=== PATIENT | female | born 1985 | race Caucasian/White ===

== ENCOUNTER 2020-01-12 23:44 | Emergency (ER) | payer BC ==
[2020-01-13] MEDS ORDERED: Ondansetron 4 MG/2 ML SDV IVPUSH ONE (00:20)
[2020-01-13] MEDS ORDERED: HYDROmorphone 1 MG/ML Syringe IVPUSH STA (00:20)
--- NOTE | 2020-01-13 00:25 | EDM.PDOC ---
ED HPI GENERAL MEDICAL PROBLEM - General Chief Complaint: Abdominal Pain Stated Complaint: LEFT SIDE STOMACH PAIN Time Seen by Provider: 01/13/20 00:05 Source of Information: Reports: Patient History Limitations: Reports: No Limitations - History of Present Illness INITIAL COMMENTS - FREE TEXT/NARRATIVE: Mrs. Wray is a very pleasant 34-year-old woman who now presents the ED with sharp left lower quadrant abdominal pain that began around 21:00 last night. She states that it started off relatively mild, but that it has progressively been getting worse ever since. The pain radiates to her lower left back. She has since developed nausea and vomiting, although she has not had any constipation, diarrhea, urinary symptoms, or fever. No prior similar symptoms. The patient did not take any [id number] or home remedies prior to coming to the ED. Her LMP was 12/23/2019, and was normal for her. The patient last ate around 15:30 yesterday afternoon. Here in the ED, the patient's initial BP is found to be mildly elevated at 142/82, with a slight bradycardia of 59 bpm. She is afebrile, saturating 100% on room air. Prior to last night, the patient denies having a recent fever, chills, sore throat, ear pain, nasal or sinus congestion, cough, dyspnea, chest pain, palpitations, nausea, vomiting, constipation, diarrhea, abdominal pain, urinary symptoms, recent weight gain or weight loss, recent bloody bowel movements or black bowel movements, recent joint aches, headaches, or rashes. The patient's PCP is PAUL Wood. Her Machine Pie Maker is Dr. Radha Banegas. Left Lower Abdomen Pain Score (Numeric/FACES): 10 - Related Data Allergies Allergy/AdvReac Type Severity Reaction Status Date / Time Penicillins Allergy Hives Verified 01/12/20 23:58 Past Medical History [employer] History: Reports: Spontaneous (x 1) : 5 Para: 4 Psychiatric History: Reports: ADHD Dermatologic History: Reports: Other (See Below) (Hyperkeratosis) - Past Surgical History HEENT Surgical History: Reports: Adenoidectomy, Tonsillectomy Female Surgical History: Reports: D&C (x 1), Tubal Ligation Social & Family History - Family History Family Medical History: Noncontributory - Tobacco Use Tobacco Use Status *Q: Current Every Day Tobacco User Tobacco Use Within Last Twelve Months: Vaping (Nicotine) Years of Tobacco use: 15 Packs/Tins Daily: 1 Packs/Tins Daily Comment: Down from 1.5 ppd - Alcohol Use Alcohol Use History: Yes Alcohol Use Frequency: Rarely - Recreational Drug Use Recreational Drug Use: No - Living Situation & Occupation Living situation: Reports: , with Spouse, with Family (4 kids) Occupation: Employed (Cleaning service) ED ROS GENERAL - Review of Systems Review Of Systems: Comprehensive ROS is negative, except as noted in HPI. ED EXAM, GI/ABD - Physical Exam Exam: See Below Exam Limited By: No Limitations General Appearance: Alert, WD/WN, Mild Distress (appears uncomfortable) Eyes: Bilateral: Normal Appearance, EOMI Ears: Normal External Exam, Hearing Grossly Normal Nose: Normal Inspection Throat/Mouth: Normal Inspection, Normal Lips, Normal Voice, No Airway Compromise Head: Atraumatic, Normocephalic Neck: Normal Inspection, Full Range of Motion Respiratory/Chest: No Respiratory Distress, Lungs Clear, Normal Breath Sounds, No Accessory Muscle Use Cardiovascular: Normal Peripheral Pulses, Regular Rate, Rhythm, No Edema, No Gallop, No JVD, No Murmur, No Rub GI/Abdominal Exam: Soft, No Organomegaly, No Distention, No Abnormal Bruit, No Mass, Tender (Exquisite, to the left lower quadrant/pelvis. Essentially nontender elsewhere.), Abnormal Bowel Sounds (diminished) Back Exam: Normal Inspection, Full Range of Motion, CVA Tenderness (L) (mild, inferior). No: CVA Tenderness (R) Extremities: Normal Inspection, Normal Range of Motion, No Pedal Edema, Normal Capillary Refill Neurological: Alert, Oriented, Normal Cognition, No Motor/Sensory Deficits Psychiatric: Normal Affect Skin Exam: Warm, Dry, Intact, Normal Color, No Rash Course - Vital Signs Last Recorded V/S: Last Vital Signs Temp 36.2 C 01/12/20 23:54 Pulse 59 L 01/12/20 23:54 Resp 18 01/12/20 23:54 BP 142/82 H 01/12/20 23:54 Pulse Ox 100 01/12/20 23:54 - Orders/Labs/Meds Orders: Active Orders 24 hr Category Date Time Status Abdomen Pelvis w Cont [CT] Stat Exams 01/13/20 00:20 Taken Sodium Chloride 0.9% [Normal Saline] 1,000 ml Med 01/13/20 00:30 Active IV ASDIRECTED Medication Orders Sodium Chloride (Normal Saline) 1,000 mls @ 150 mls/hr IV ASDIRECTED TOMMY Last Admin: 01/13/20 00:29 Dose: 150 mls/hr Documented by: ROBERT Labs: Laboratory Tests 01/13/20 01/13/20 01/13/20 Range/Units 00:06 00:06 00:55 WBC 12.51 H (3.98-10.04) K/mm3 RBC 4.89 (3.98-5.22) M/mm3 Hgb 13.7 (11.2-15.7) gm/dl Hct 40.1 (34.1-44.9) % MCV 82.0 (79.4-94.8) fl MCH 28.0 (25.6-32.2) pg MCHC 34.2 (32.2-35.5) g/dl RDW Std Deviation 43.0 (36.4-46.3) fL Plt Count 288 (182-369) K/mm3 MPV 11.0 (9.4-12.3) fl Neutrophils % (Manual) 33 L (40-60) % Band Neutrophils % 1 (0-10) % Lymphocytes % (Manual) 37 (20-40) % Atypical Lymphs % 16 % Monocytes % (Manual) 13 H (2-10) % Eosinophils % (Manual) 0 L (0.7-5.8) % Basophils % (Manual) 0 L (0.1-1.2) Platelet Estimate Adequate Plt Morphology Comment Normal RBC Morph Comment Normal Sodium 134 L (136-145) mEq/L Potassium 3.5 (3.5-5.1) mEq/L Chloride 99 (98-107) mEq/L Carbon Dioxide 18 L (21-32) mEq/L Anion Gap 20.5 H (5-15) BUN 17 (7-18) mg/dL Creatinine 1.0 (0.55-1.02) mg/dL Est Cr Clr Drug Dosing 87.34 mL/min Estimated GFR (MDRD) > 60 (>60) mL/min BUN/Creatinine Ratio 17.0 (14-18) Glucose 123 H (74-106) mg/dL Calcium 9.1 (8.5-10.1) mg/dL Magnesium 1.6 L (1.8-2.4) mg/dl Total Bilirubin 0.3 (0.2-1.0) mg/dL AST 20 (15-37) U/L ALT 22 (14-59) U/L Alkaline Phosphatase 48 (46-116) U/L Total Protein 7.8 (6.4-8.2) g/dl Albumin 3.9 (3.4-5.0) g/dl Globulin 3.9 gm/dL Albumin/Globulin Ratio 1.0 (1-2) Urine Color Yellow (Yellow) Urine Appearance Clear (Clear) Urine pH 5.5 (5.0-8.0) Ur Specific [place] > or = 1.030 (1.005-1.030) Urine Protein Trace H (Negative) Urine Glucose (UA) Negative (Negative) Urine Ketones 3+ H (Negative) Urine Occult Blood Negative (Negative) Urine Nitrite Negative (Negative) Urine Bilirubin Negative (Negative) Urine Urobilinogen 0.2 (0.2-1.0) Ur Leukocyte Esterase Negative (Negative) Urine RBC 0-5 (0-5) /hpf Urine WBC 0-5 (0-5) /hpf Ur Squamous Epith Cells 0-5 (0-5) /hpf Urine Bacteria Few (FEW) /hpf Urine Mucus Moderate H (FEW) /hpf Urine HCG, Qual (NEGATIVE) 01/13/20 Range/Units 01:04 WBC (3.98-10.04) K/mm3 RBC (3.98-5.22) M/mm3 Hgb (11.2-15.7) gm/dl Hct (34.1-44.9) % MCV (79.4-94.8) fl MCH (25.6-32.2) pg MCHC (32.2-35.5) g/dl RDW Std Deviation (36.4-46.3) fL Plt Count (182-369) K/mm3 MPV (9.4-12.3) fl Neutrophils % (Manual) (40-60) % Band Neutrophils % (0-10) % Lymphocytes % (Manual) (20-40) % Atypical Lymphs % % Monocytes % (Manual) (2-10) % Eosinophils % (Manual) (0.7-5.8) % Basophils % (Manual) (0.1-1.2) Platelet Estimate Plt Morphology Comment RBC Morph Comment Sodium (136-145) mEq/L Potassium (3.5-5.1) mEq/L Chloride (98-107) mEq/L Carbon Dioxide (21-32) mEq/L Anion Gap (5-15) BUN (7-18) mg/dL Creatinine (0.55-1.02) mg/dL Est Cr Clr Drug Dosing mL/min Estimated GFR (MDRD) (>60) mL/min BUN/Creatinine Ratio (14-18) Glucose (74-106) mg/dL Calcium (8.5-10.1) mg/dL Magnesium (1.8-2.4) mg/dl Total Bilirubin (0.2-1.0) mg/dL AST (15-37) U/L ALT (14-59) U/L Alkaline Phosphatase (46-116) U/L Total Protein (6.4-8.2) g/dl Albumin (3.4-5.0) g/dl Globulin gm/dL Albumin/Globulin Ratio (1-2) Urine Color (Yellow) Urine Appearance (Clear) Urine pH (5.0-8.0) Ur Specific [place] (1.005-1.030) Urine Protein (Negative) Urine Glucose (UA) (Negative) Urine Ketones (Negative) Urine Occult Blood (Negative) Urine Nitrite (Negative) Urine Bilirubin (Negative) Urine Urobilinogen (0.2-1.0) Ur Leukocyte Esterase (Negative) Urine RBC (0-5) /hpf Urine WBC (0-5) /hpf Ur Squamous Epith Cells (0-5) /hpf Urine Bacteria (FEW) /hpf Urine Mucus (FEW) /hpf Urine HCG, Qual Negative (NEGATIVE) Meds: Medications Generic Name Dose Route Start Last Admin Trade Name Freq PRN Reason Stop Dose Admin Sodium Chloride 1,000 mls @ 150 mls/hr 01/13/20 00:30 01/13/20 00:29 Normal Saline IV 150 mls/hr ASDIRECTED TOMMY Administration Discontinued Medications Generic Name Dose Route Start Last Admin Trade Name Freq PRN Reason Stop Dose Admin Diatrizoate Meglum/Diatrizoate Sod 120 ml 01/13/20 01:47 01/13/20 01:48 Gastrografin 37% PO 01/13/20 01:48 120 ml ONETIME ONE Administration Hydromorphone HCl 1 mg 01/13/20 00:20 01/13/20 00:31 Dilaudid IVPUSH 01/13/20 00:21 1 mg ONETIME STA Administration Hydromorphone HCl 1 mg 01/13/20 01:49 01/13/20 01:57 Dilaudid IVPUSH 01/13/20 01:50 1 mg ONETIME ONE Administration Iopamidol 100 ml 01/13/20 01:47 01/13/20 01:48 Isovue-300 (61%) IVPUSH 01/13/20 01:48 100 ml ONETIME ONE Administration Magnesium Sulfate 2 gm 01/13/20 00:52 01/13/20 01:07 Magnesium Sulfate In Water Premix IV 01/13/20 00:53 2 gm ONETIME STA Administration Ondansetron HCl 4 mg 01/13/20 00:20 01/13/20 00:30 Zofran IVPUSH 01/13/20 00:21 4 mg ONETIME ONE Administration Sodium Chloride 10 ml 01/13/20 01:47 01/13/20 01:48 Saline Flush FLUSH 01/13/20 01:48 10 ml ONETIME ONE Administration - Re-Assessments/Exams Free Text/Narrative Re-Assessment/Exam: 01/13/20 00:22 As above, the patient developed sharp left lower quadrant pain radiating to her lower left back around 21:00 last night, which has progressively gotten worse. She has had nausea and vomiting, but no other symptoms. She is afebrile. On examination, she has considerable left lower quadrant/pelvic tenderness, and minimal left lower flank tenderness. Her history is concerning for a ureterolith, but her examination is far more consistent with a ruptured ovarian cyst. I have ordered a work-up that includes blood work, a urinalysis, a urine test, and a CT of the abdomen and pelvis with oral and IV contrast. In the meantime, the patient will be given IV Dilaudid, IV Zofran, and IV fluid. 01/13/20 00:52 The patient's CMP is remarkable for a sodium slightly depressed at 134, and anion gap mildly elevated at 20.5, with a bicarbonate decreased at 18, and a blood glucose mildly elevated 123, with the remainder of her CMP being unremarkable. Her magnesium level is mildly depressed at 1.6. Based on the above, I have ordered a 2 g Mg-rider. 01/13/20 01:21 The patient's CBC is remarkable for WBC count elevated at 12.51, but with 1% bandemia, and the remainder of her CBC being unremarkable. Her urinalysis is unremarkable. Her urine test is negative. 01/13/20 02:05 CT of the abdomen and pelvis with oral and IV contrast is read by [facility] as: 1. Complex cystic LEFT adnexal mass as above.Differential diagnostic considerations would include functional/hemorrhagic/complex ovarian cyst, endometrioma, cystic ovarian neoplasm, or less likely tubo-ovarian abscess. 2. Remainder of findings described as above. 01/13/20 02:09 Test results discussed with the patient. As above, the patient's pain appears to be due to a left ovarian cyst. I am recommending ibuprofen as needed for discomfort, however, she will also be provided with [facility]'s prescriptions for both [place] and Zofran. I would like her to follow-up with her Machine Pie Maker to make sure that there is nothing else going on. The patient's Mg-rider has not yet finished infusing; once it is finished, we will discharge the patient home. Departure - Departure Time of Disposition: 02:11 Disposition: Home, Self-Care 01 Condition: Good Clinical Impression: Left ovarian cyst, Hypomagnesemia - Discharge Information *PRESCRIPTION DRUG MONITORING PROGRAM REVIEWED*: Not Applicable *COPY OF PRESCRIPTION DRUG MONITORING REPORT IN PATIENT CHRISTOPHER: Not Applicable Referrals: Katelyn Prescott PA-C [Primary Care Provider] - Radha Banegas MD [Physician] - Forms: ED Department Discharge Additional Instructions: You were seen in the emergency room after developing progressively worsening lower left abdominal pain last night, with nausea and vomiting. Work-up in ER included blood work, a urinalysis, a urine test, and a CT of your abdomen and pelvis with oral and IV contrast. Your blood work found your magnesium level to be mildly depressed at 1.6. You were given IV replacement magnesium in the ER. The CT scan found a complex left ovarian cyst, which is most likely the cause of your pain. We recommend that you take [id number] ibuprofen, 3 tablets (600 mg) up to every 8 hours, with food, as needed for discomfort. You have been provided with prescriptions for both the opioid pain reliever [place] and the anti-nausea medicine Zofran via [facility]. You may take 1 to 2 tablets of [place] up to every 6 hours, as needed for pain not relieved by ibuprofen. If you take [place], do not drive or operate heavy machinery for 12 hours afterwards. [place] may cause constipation, so consider taking a stool softener. You may dissolve 1 tablet of Zofran on your tongue up to every 8 hours, as needed for nausea/vomiting. We recommend that you follow-up with your Machine Pie Maker, Dr. Radha Banegas, at the next available appointment, for further evaluation of the ovarian mass. If any other problems, please do not hesitate to return to the ER. Sepsis Event Note (ED) - Evaluation Sepsis Screening Result: No Definite Risk - Focused Exam Vital Signs: Vital Signs Temp Pulse Resp BP Pulse Ox 01/12/20 23:54 36.2 C 59 L 18 142/82 H 100 - My Orders Last 24 Hours: My Active Orders 01/13/20 00:20 Abdomen Pelvis w Cont [CT] Stat 01/13/20 00:30 Sodium Chloride 0.9% [Normal Saline] 1,000 ml IV ASDIRECTED - Assessment/Plan Last 24 Hours: My Active Orders 01/13/20 00:20 Abdomen Pelvis w Cont [CT] Stat 01/13/20 00:30 Sodium Chloride 0.9% [Normal Saline] 1,000 ml IV ASDIRECTED
[2020-01-13] MEDS ORDERED: Sodium Chloride 0.9% 1,000 ML IV SCH (00:30)
[2020-01-13] MEDS ORDERED: Magnesium Sulfate/Water 2 GM/50 ML Premix Bag IV STA (00:52)
[2020-01-13] MEDS ORDERED: Iopamidol 612 MG/ML 100 ML Bottle IVPUSH ONE (01:47)
[2020-01-13] MEDS ORDERED: Sodium Chloride 0.9% 10 ML Syringe FLUSH ONE (01:47)
[2020-01-13] MEDS ORDERED: Diatrizoate Meglumine/Diatrizoate Sodium 37% 120 ML Bottle PO ONE (01:47)
[2020-01-13] MEDS ORDERED: HYDROmorphone 1 MG/ML Syringe IVPUSH ONE (01:49)
--- NOTE | 2020-01-17 13:04 | CT ---
"PROCEDURE INFORMATION: Exam: CT Abdomen And Pelvis With Contrast Exam date and time: 01/13/2020 12:43 AM Age: 34 years old Clinical indication: Abdominal pain; Flank; Left lower quadrant (llq); Prior surgery; Surgery date: 6+ months; Surgery type: Tubal ligation TECHNIQUE: Imaging protocol: Computed tomography of the abdomen and pelvis with intravenous contrast. Contrast material: ISOVUE 300; Contrast volume: 125 ml; Contrast route: INTRAVENOUS (IV); COMPARISON: US OB Follow Up 1st 10/19/2018 4:34 PM FINDINGS: Lungs: Bilateral dependent lower lobe atelectasis, left greater than right. Early mild left basilar pneumonitis cannot entirely be excluded Liver: Liver is normal. Gallbladder and bile ducts: Gallbladder is normal. No biliary ductal dilation. Pancreas: Pancreas is normal. Spleen: Spleen is normal. Adrenals: No adrenal mass. Kidneys and ureters: Right kidney is normal. Left kidney is normal. Symmetric bilateral renal contrast excretion noted, into normal nondilated renal collecting systems and ureters, on delayed imaging.No hydronephrosis. No ureteral calculus. Stomach and bowel: No bowel obstruction. No pathologic bowel wall thickening. Oral contrast only within stomach and proximal small bowel. No bowel wall pneumatosis. Appendix: No evidence of acute appendicitis. Unremarkable appendix. Intraperitoneal space: No pneumoperitoneum. Mild pelvic free intraperitoneal fluid. Vasculature: No aortic aneurysm. Pelvic phleboliths. Lymph nodes: No pathologically enlarged lymph nodes. Urinary bladder: Unremarkable urinary bladder. ROSMERY KAT | Final Radiology Report CONFIDENTIALITY STATEMENT This report is intended only for use by the referring physician, and only in accordance with law. If you received this in error, call [phone]. Page 2 of 2 Reproductive: Possible fibroid uterus with prominent uterine endometrium and/or mild nonspecific fluid. No right adnexal mass. 4.6 x 2.5 cm complex, ovoid hypodense and isodense left adnexal mass, which contains dominant 2.2 cm hypodense complex cystic region. Bones/joints: No acute displaced fracture or osseous neoplastic lesion. Soft tissues: Unremarkable. IMPRESSION: 1. Complex cystic LEFT adnexal mass as above.Differential diagnostic considerations would include functional/hemorrhagic/complex ovarian cyst, endometrioma, cystic ovarian neoplasm, or less likely tubo-ovarian abscess. 2. Remainder of findings described as above. Thank you for allowing us to participate in the care of your patient. Dictated and Authenticated by: Jian Zamora MD 01/13/2020 2:59 AM Central Time ([place] & [place]) [place]"
== END 2020-01-13 03:00 | disposition home or self-care (01) ==
LOC: JD.ED 23:44
DX: N83.202 Unspecified ovarian cyst, left side (principal); E83.42 Hypomagnesemia; F17.210 Nicotine dependence, cigarettes, uncomplicated; F17.290 Nicotine dependence, other tobacco product, uncomplicated; Z88.0 Allergy status to penicillin
CPT/HCPCS: 36415; 74177; 80053; 81001; 81025; 83735; 85007; 85027; 96365; 96366; 96375; 96376; 99284; J1170; J2405; J3475; J7030; Q9963; Q9967

== ENCOUNTER 2020-03-13 11:18 | Emergency (ER) | payer BC ==
[2020-03-13] MEDS ORDERED: Sodium Chloride 0.9% 10 ML Syringe FLUSH PRN (11:37)
--- NOTE | 2020-03-13 12:11 | CT ---
CT facial bones Technique: Multiple axial sections through the facial bones were obtained. Reconstructed coronal and sagittal images were obtained. Findings: Paranasal sinuses show nothing acute. Small fracture is identified within the tip of the nasal bone. There is mild soft tissue air in this same region. No additional fracture is appreciated. Right and left globes are symmetric. No retrobulbar abnormality is appreciated. Mastoid sinuses appear clear. Impression: 1. Very small fracture within the tip of the nasal bone with small amount of adjacent soft tissue air. 2. Other portions of the CT study of the facial bones appear unremarkable. Diagnostic code #3
--- NOTE | 2020-03-13 12:11 | CT ---
Head CT Technique: Multiple axial sections through the brain were obtained. Intravenous contrast was not utilized. Comparison: No previous study is available. Findings: Ventricles along with basal cisterns and sulci over the convexities appear within normal limits for the patient's age. No abnormal parenchymal densities are appreciated. There is some artifact from left sided earring. Bone window settings were reviewed. Visualized mastoid sinuses and paranasal sinuses show nothing acute. No acute calvarial finding is appreciated. Impression: 1. Nothing acute is appreciated on noncontrast head CT study. Diagnostic code #1
[2020-03-13] MEDS ORDERED: HYDROmorphone 0.5 MG/0.5 ML Syringe IVPUSH ONE (12:18)
[2020-03-13] MEDS ORDERED: Lidocaine 1% 10 ML MDV INJECT ONE (12:18)
[2020-03-13] MEDS ORDERED: Ondansetron 4 MG/2 ML SDV IVPUSH ONE (12:19)
--- NOTE | 2020-03-13 12:47 | EDM.PDOC ---
ED HPI GENERAL MEDICAL PROBLEM <Lenin Hopkins - Last Filed: 03/13/20 14:11> - General Source of Information: Reports: Patient History Limitations: Reports: No Limitations face Pain Score (Numeric/FACES): 10 <Pineda Pagan - Last Filed: 03/13/20 14:22> - General Chief Complaint: Syncope Stated Complaint: PASSED OUT/ NOSE INJURY Time Seen by Provider: 03/13/20 11:37 - History of Present Illness INITIAL COMMENTS - FREE TEXT/NARRATIVE: 34-year-old female presents to the emergency department with complaints of a syncopal episode. Patient states she was sitting in the garage having coffee and had just lit a cigarette and took a puff when all of a sudden she felt lightheaded she attempted to lean to the side to rest on a counter when she fell forward and hit her face on a workbench. Patient states she remembers feeling dizzy but after that only remembers waking up to her yelling at her. Patient denies drinking alcohol last night or this morning, she last ate last evening at about 9:00 she had 2 granola bars. States she had not yet eaten breakfast this morning. States she does have a history of having a syncopal episode when she was about 17 years old and in earlier childhood where she passed out on her easy bake oven. (Pineda Pagan) - Related Data Allergies Allergy/AdvReac Type Severity Reaction Status Date / Time Penicillins Allergy Hives Verified 03/13/20 11:30 Home Meds: Home Meds Lisdexamfetamine Dimesylate [Vyvanse] 40 mg PO DAILY 03/13/20 [History] Past Medical History - Past Health History Medical/Surgical History: Denies Medical/Surgical History HEENT History: Reports: None Cardiovascular History: Reports: Other (See Below) Other Cardiovascular History: palpatations [employer]ESSIONAL History: Reports: Spontaneous Psychiatric History: Reports: ADHD Dermatologic History: Reports: Other (See Below) Other Dermatologic History: Hyperkeratosis - Past Surgical History HEENT Surgical History: Reports: Adenoidectomy, Tonsillectomy Female Surgical History: Reports: D&C, Tubal Ligation Other Female Surgeries/Procedures: unsuccessful tubal ligation/ salpingectomy <Pineda Pagan - Last Filed: 03/13/20 14:22> Social & Family History - Family History Family Medical History: No Pertinent Family History - Tobacco Use Tobacco Use Status *Q: Current Every Day Tobacco User Years of Tobacco use: 15 Packs/Tins Daily: 0.2 - Caffeine Use Caffeine Use: Reports: None - Recreational Drug Use Recreational Drug Use: No - Living Situation & Occupation Living situation: Reports: , with Spouse, with Family (4 kids) Occupation: Employed (Cleaning service) <Pineda Pagan M - Last Filed: 03/13/20 14:22> ED ROS GENERAL - Review of Systems Review Of Systems: See Below Constitutional: Reports: No Symptoms. Denies: Fever, Chills HEENT: Reports: Nosebleed, Nose Pain Respiratory: Reports: No Symptoms Cardiovascular: Reports: Lightheadedness, Syncope. Denies: Chest Pain, Edema, Orthopnea, Palpitations Endocrine: Reports: No Symptoms GI/Abdominal: Reports: No Symptoms : Reports: No Symptoms Musculoskeletal: Reports: No Symptoms Skin: Reports: No Symptoms Neurological: Reports: Dizziness Psychiatric: Reports: No Symptoms Hematologic/Lymphatic: Reports: No Symptoms Immunologic: Reports: No Symptoms <Pineda Pagan M - Last Filed: 03/13/20 14:22> - Physical Exam Exam: See Below Exam Limited By: No Limitations General Appearance: Alert, WD/WN, No Apparent Distress Eye Exam: Bilateral Eye: EOMI, PERRL Ears: Hearing Grossly Normal Nose: Nasal Tenderness, Nasal Deformity, Nasal Swelling, Nasal Drainage, Other (Laceration noted to left nasal wing and base collumella.) Throat/Mouth: Normal Inspection, Normal Lips, Normal Voice, No Airway Compromise Head Exam: Atraumatic, Normocephalic Neck: Normal Inspection, Supple, Non-Tender, Full Range of Motion Respiratory/Chest: No Respiratory Distress, Lungs Clear, Normal Breath Sounds, No Accessory Muscle Use, Chest Non-Tender Cardiovascular: Normal Peripheral Pulses, Regular Rate, Rhythm, No Edema, No Murmur GI/Abdominal: Normal Bowel Sounds, Soft, Non-Tender (Female) Exam: Deferred Rectal (Female) Exam: Deferred Neuro Exam (Abbreviated): Alert, Oriented, CN II-XII Intact, Normal Cognition, No Motor/Sensory Deficits Back Exam: Normal Inspection, Full Range of Motion Extremities: Normal Inspection, Normal Range of Motion, Non-Tender, No Pedal Edema, Normal Capillary Refill Psychiatric: Normal Affect, Normal Mood Skin Exam: Warm, Dry, Intact, Normal Color, No Rash <Pineda Pagan - Last Filed: 03/13/20 14:22> ED PROCEDURES - Laceration/Wound Repair Nose Lac/wound length in cm: 1 Appearance: Subcutaneous Anesthetic Type: Local Local Anesthesia - Lidocaine (Xylocaine): 1% Plain Local Anesthetic Volume: 1cc Exploration/Debridement/Repair: Wound Explored, In a Bloodless Field Closed with: Sutures Suture Size: 5-0 # of Sutures: 5 Suture Type: Nylon Tetanus Status Addressed: Yes (The patient states her last tetanus shot was 2 years ago) Complications: No Mouth Lac/wound length in cm: 1.3 Appearance: Subcutaneous Local Anesthesia - Lidocaine (Xylocaine): 1% Plain Local Anesthetic Volume: 1cc Suture Size: 4-0 # of Sutures: 3 Repaired with: Vicryl <Lenin Hopkins - Last Filed: 03/13/20 14:11> - Laceration/Wound Repair Nose Progress/Comments: Had 2 lacerations repaired on her nose 1 was a 1 cm laceration on the alar wing on the left side of her nose this was 1 cm involved internal mucosa minimally. The area was anesthetized with three quarters of a cc of 1% lidocaine without epinephrine. After adequate anesthesia the wound was approximated with 3 simple sutures of 5-0 nylon he will be very good approximation the stitches were placed external the internal portion did not receive the stitch and closed up nicely with approximation of the external portion of the laceration. The second lesion was at the base of the septum for the columella. This was anesthetized with three fourths of a cc of 1% lidocaine without epinephrine 2 simple sutures of 5-0 nylon were used to gently approximate this area the proximal portion of this had the external skin avulsed this was loosely approximated (Lenin Hopkins) Mouth Progress/Comments: Intraoral laceration behind your lower lip near the base. This was closed partially deeply with 3 absorbable sutures of 4-0 nylon the first stitch was deeper than 2 more superficial stitches helped reapproximate the tissue. (Lenin Hopkins) #1 Interpretation EKG Date: 03/13/20 Time: 11:44 Rhythm: NSR Rate (Beats/Min): 67 [place]: Normal P-Wave: Present QRS: Normal ST-T: Normal QT: Normal <Pineda Pagan - Last Filed: 03/13/20 14:22> #1 Interpretation EKG Interpretation Comments: Normal sinus rhythm per Dr. Hopkins interpretation (Pineda Pagan) Course <Pineda Pagan - Last Filed: 03/13/20 14:22> - Vital Signs Text/Narrative:: 34-year-old female presents to the ER with a syncopal episode. Patient states she is having a cup of coffee and her first cigarette of the morning with her in the garage when she began to feel lightheaded attempted to lean to the side to lean on a counter but ended up falling forward and hitting her face on a workbench. Patient states she woke up on the ground with her help yelling at her. Patient denies any history of cardiac issues or seizure e pisodes. Patient denies any alcohol intake this morning or last evening. She states she last ate about 9:00 last night but had not eaten anything yet this morning. She did sustain a laceration to her left nasal wing and the base of her collumella. Nasal bridge is swollen. I have ordered a CT of the head and maxillofacial bones. I have ordered an EKG, CBC, CMP, magnesium and a troponin. (Pineda Pagan) Last Recorded V/S: Last Vital Signs Temp 97.4 F 03/13/20 11:26 Pulse 75 03/13/20 11:26 Resp 18 03/13/20 11:26 BP 123/89 03/13/20 11:26 Pulse Ox 97 03/13/20 11:26 - Orders/Labs/Meds Orders: Active Orders 24 hr Category Date Time Status EKG Documentation Completion [RC] STAT Care 03/13/20 11:37 Active Sodium Chloride 0.9% [Saline Flush] Med 03/13/20 11:37 Active 10 ml FLUSH ASDIRECTED PRN Saline Lock Insert [OM.PC] Stat Oth 03/13/20 11:37 Ordered Medication Orders Sodium Chloride (Saline Flush) 10 ml FLUSH ASDIRECTED PRN PRN Reason: Keep Vein Open Last Admin: 03/13/20 11:47 Dose: 10 ml Documented by: CHASITY Labs: Laboratory Tests 03/13/20 03/13/20 03/13/20 Range/Units 11:41 11:41 11:41 WBC 9.36 (3.98-10.04) K/mm3 RBC 4.91 (3.98-5.22) M/mm3 Hgb 13.4 (11.2-15.7) gm/dl Hct 40.8 (34.1-44.9) % MCV 83.1 (79.4-94.8) fl MCH 27.3 (25.6-32.2) pg MCHC 32.8 (32.2-35.5) g/dl RDW Std Deviation 44.3 (36.4-46.3) fL Plt Count 289 (182-369) K/mm3 MPV 10.4 (9.4-12.3) fl Neut % (Auto) 66.3 (34.0-71.1) % Lymph % (Auto) 22.8 (19.3-51.7) % [place] % (Auto) 9.3 (4.7-12.5) % Eos % (Auto) 1.3 (0.7-5.8) Baso % (Auto) 0.2 (0.1-1.2) % Neut # (Auto) 6.21 H (1.56-6.13) K/mm3 Lymph # (Auto) 2.13 (1.18-3.74) K/mm3 [place] # (Auto) 0.87 H (0.24-0.36) K/mm3 Eos # (Auto) 0.12 (0.04-0.36) K/mm3 Baso # (Auto) 0.02 (0.01-0.08) K/mm3 Sodium 139 (136-145) mEq/L Potassium 4.1 (3.5-5.1) mEq/L Chloride 106 (98-107) mEq/L Carbon Dioxide 27 (21-32) mEq/L Anion Gap 10.1 (5-15) BUN 11 (7-18) mg/dL Creatinine 1.0 (0.55-1.02) mg/dL Est Cr Clr Drug Dosing 87.34 mL/min Estimated GFR (MDRD) > 60 (>60) mL/min BUN/Creatinine Ratio 11.0 L (14-18) Glucose 112 H (74-106) mg/dL Calcium 8.7 (8.5-10.1) mg/dL Magnesium 1.7 L (1.8-2.4) mg/dl Total Bilirubin 0.5 (0.2-1.0) mg/dL AST 20 (15-37) U/L ALT 27 (14-59) U/L Alkaline Phosphatase 43 L (46-116) U/L Troponin I < 0.017 (0.00-0.056) ng/mL Total Protein 6.9 (6.4-8.2) g/dl Albumin 3.5 (3.4-5.0) g/dl Globulin 3.4 gm/dL Albumin/Globulin Ratio 1.0 (1-2) Meds: Medications Generic Name Dose Route Start Last Admin Trade Name Freq PRN Reason Stop Dose Admin Sodium Chloride 10 ml 03/13/20 11:37 03/13/20 11:47 Saline Flush FLUSH 10 ml ASDIRECTED PRN Administration Keep Vein Open Discontinued Medications Generic Name Dose Route Start Last Admin Trade Name Freq PRN Reason Stop Dose Admin Hydromorphone HCl 0.5 mg 03/13/20 12:18 03/13/20 12:26 Dilaudid IVPUSH 03/13/20 12:19 0.5 mg ONETIME ONE Administration Lidocaine HCl 10 ml 03/13/20 12:18 03/13/20 12:27 Xylocaine 1% INJECT 03/13/20 12:19 10 ml ONETIME ONE Administration Ondansetron HCl 4 mg 03/13/20 12:19 03/13/20 12:27 Zofran IVPUSH 03/13/20 12:20 4 mg ONETIME ONE Administration - Radiology Interpretation Free Text/Narrative:: CT of facial bones radiology impression: 1. Very small fracture within the tip of the nasal bone with small amount of adjacent soft tissue air. 2. Other portions of the CT study of the facial bones appear unremarkable. Head CT radiologist impression: 1. Nothing acute is appreciated on noncontrast head CT study. (Pineda Pagan) - Re-Assessments/Exams Free Text/Narrative Re-Assessment/Exam: 03/13/20 12:56 CBC is unremarkable, chemistry reveals glucose of 112, and a magnesium of 1.7. Troponin less than 0.017. 03/13/20 14:19 Patient will be discharged to home. She has been instructed to follow-up with Katelyn Prescott first thing next week regarding nasal fracture and syncopal episode. (Pineda Pagan) Departure <Lenin Hopkins - Last Filed: 03/13/20 14:11> - Departure Time of Disposition: 14:21 Condition: Good <Pineda Pagan - Last Filed: 03/13/20 14:22> - Departure Disposition: Home, Self-Care 01 Clinical Impression: Syncope Qualifiers: Syncope type: unspecified Qualified Code(s): R55 - Syncope and collapse - Discharge Information Instructions: Syncope, [id number] Referrals: Katelyn Prescott PA-C [Primary Care Provider] - Forms: ED Department Discharge Additional Instructions: You were seen in the emergency department for an episode of passing out with trauma to your nose. CT scan of your face and head reveal that you do have a very small fracture within the tip of the nasal bone. Otherwise CT scans were unremarkable. Your EKG was unremarkable as well. Lab work was unremarkable other than a magnesium that was slightly low. Recommend you eat magnesium rich foods like avocados, nuts, legumes, whole grains etc. you will need to follow-up with your primary care provider, Katelyn Prescott, within about a week once the swelling has gone down in your nose. She will need to evaluate whether or not to refer you to ENT specialist and to follow-up on your fainting spell. Over the course the next couple of days you can apply ice for 20 minutes on 4 times a day to decrease swelling, you can also sleep with your head of bed elevated. Take ibuprofen 800 mg every 8 hours or Tylenol 650 milligrams every 6 hours as needed for pain or discomfort. Do not exceed 3200 mg of ibuprofen in 24 hours or 4 g of Tylenol in 24 hours. Take it easy over the next couple of days. Stitches to your nose can be removed in 6 days. Stitches inside your mouth will dissolve. You will likely be sensitive to spicy or salty foods over the next several days. Gently brush lower teeth. I do not recommend using any mouthwash with alcohol as one of the ingredients. Follow-up with the clinic regarding this should your condition worsen or change please return to the emergency department. Sepsis Event Note (ED) - Evaluation Sepsis Screening Result: No Definite Risk <Pineda Pagan M - Last Filed: 03/13/20 14:22> - Focused Exam Vital Signs: Vital Signs Temp Pulse Resp BP Pulse Ox 03/13/20 11:26 97.4 F 75 18 123/89 97 - My Orders Last 24 Hours: My Active Orders 03/13/20 11:37 EKG Documentation Completion [RC] STAT Sodium Chloride 0.9% [Saline Flush] 10 ml FLUSH ASDIRECTED PRN Saline Lock Insert [OM.PC] Stat - Assessment/Plan Last 24 Hours: My Active Orders 03/13/20 11:37 EKG Documentation Completion [RC] STAT Sodium Chloride 0.9% [Saline Flush] 10 ml FLUSH ASDIRECTED PRN Saline Lock Insert [OM.PC] Stat
== END 2020-03-13 14:39 | disposition home or self-care (01) ==
LOC: JD.ED 11:18
DX: S01.21XA Laceration without foreign body of nose, initial encounter (principal); S01.512A Laceration without foreign body of oral cavity, initial encounter; R55 Syncope and collapse; F90.9 Attention-deficit hyperactivity disorder, unspecified type; F17.210 Nicotine dependence, cigarettes, uncomplicated; Z79.899 Other long term (current) drug therapy; Z88.0 Allergy status to penicillin; W22.8XXA Striking against or struck by other objects, initial encounter
CPT/HCPCS: 12011; 36415; 70450; 70486; 80053; 83735; 84484; 85025; 93005; 96374; 96375; 99284; J1170; J2001; J2405

== ENCOUNTER 2022-09-04 13:00 | Emergency (ER) | payer BC | END 2022-09-04 13:40 | disposition home or self-care (01) | LOC: JD.ED 13:00 | DX: H60.503 Unspecified acute noninfective otitis externa, bilateral (principal); H66.003 Acute suppurative otitis media without spontaneous rupture of ear drum, bilateral; Z88.0 Allergy status to penicillin; Z88.2 Allergy status to sulfonamides | CPT/HCPCS: 99282 ==